=== PATIENT | female | born 1950 | race Caucasian/White ===

== ENCOUNTER → 2017-08-19 | Outpatient (CLI) | payer BC, OTHER ==
--- NOTE | 2017-08-20 08:26 | RADIOLOGY IMAGING REPORT ---
[place] [facility] [place]: JOSE MATTHEW : [id number] MR: [id number] V: [id number] EXAM DATE: ORDERING PHYSICIAN: INA LEUNG TECHNOLOGIST: Mary Gann PROCEDURE:BILATERAL DIGITAL SCREENING MAMMMOGRAM WITH CAD ASSISTED INTERPRETATION AND 3D BREAST TOMOSYNTHESIS. COMPARISON:Prior mammograms dated 08/06/16, 07/25/15, 07/06/14, 06/30/13 and 05/15/11. INDICATIONS:SCREENING FINDINGS: Small to moderate amount of fibroglandular tissue is seen throughout the breasts. The parenchymal pattern has remained stable when allowing for difference in mammographic technique and patient positioning. There is no evidence of malignant appearing mass, malignant appearing calcification or secondary sign of malignancy in either breast. DIAGNOSTIC CATEGORY 1--NEGATIVE. RECOMMENDATIONS: ROUTINE MAMMOGRAM AND CLINICAL EVALUATION. IMPRESSION: BI-RADS 1: No significant abnormality seen. Images were reviewed with R2CAD and 3D breast tomosynthesis. Dictated by: Karina Chi M.D. on 08/19/2017 at 16:43 Transcribed by: SAMREEN on 08/19/2017 at 18:49 Approved by: Karina Chi M.D. on 08/20/2017 at 8:25 [facility]
== END ==
LOC: MAMO 01:10
PROVIDERS: ATTEND Family Medicine
DX: Z12.31 Encounter for screening mammogram for malignant neoplasm of breast (principal)
CPT/HCPCS: 77063; 77067

== ENCOUNTER 2018-02-17 01:11 | Day surgery (SDC) | payer BC, MEDICARE ==
[~2018-02-17] VITALS: Ht 160 cm; Wt 47.6 kg
[~2018-02-17 01:11] MED LIST: CALC-864 PO; CHOL10005 PO; MELA10TA PO; NAPR1TAB10 PO; NAPR220C12 PO
[2018-02-17 06:39] VITALS: BP 117/78
[2018-02-17] MEDS ORDERED: PROPOFOL EMUL(*) 10MG/ML 20 ML 40 ML ONE (06:59)
[2018-02-17 08:10] VITALS: BP 125/70
[2018-02-17 08:43] VITALS: BP 118/75
[2018-02-17 08:45] VITALS: BP 127/82
[2018-02-17 08:46] VITALS: BP 102/86
[2018-02-17] MEDS ORDERED: NORMOSOL R SOLN(*) 1000 ML BAG 1,000 ML IV PRN (10:00)
[2018-02-17] MEDS ORDERED: LIDOCAINE/SOD BICARB 8.4% SYR ID ONE (10:00)
== END 2018-02-17 09:05 | disposition home or self-care (01) ==
LOC: OR 01:11
PROVIDERS: ATTEND Family Medicine
DX: Z12.11 Encounter for screening for malignant neoplasm of colon (principal)
CPT/HCPCS: 00812; 45378; J2704

== ENCOUNTER → 2018-08-25 | Outpatient (CLI) | payer BC, MEDICARE ==
--- NOTE | 2018-08-26 09:58 | RADIOLOGY IMAGING REPORT ---
FACILITY: [facility] PATIENT NAME: JOSE MATTHEW : [id number] MR: [id number] V: [id number] EXAM DATE: [id number] ORDERING PHYSICIAN: INA LEUNG TECHNOLOGIST: June Gaviria PROCEDURE:BILATERAL DIGITAL SCREENING MAMMOGRAM WITH CAD ASSISTED INTERPRETATION & 3D TOMOSYNTHESIS COMPARISON:Prior mammograms 08/19/17, 08/06/16, 07/25/15, 07/06/14, 07/30/13. INDICATIONS:SCREENING FINDINGS: Scattered fibroglandular densities are seen throughout the breasts. The parenchymal pattern has remained stable allowing for difference in mammographic technique & patient positioning. DIAGNOSTIC CATEGORY 1--NEGATIVE. RECOMMENDATIONS: ROUTINE MAMMOGRAM AND CLINICAL EVALUATION. IMPRESSION: BIRADS 1: Negative. No significant abnormality is seen. Dictated by: Karina Chi M.D. on 08/25/2018 at 16:58 Transcribed by: WALDO on 08/26/2018 at 9:04 Approved by: Karina Chi M.D. on 08/26/2018 at 9:58 [facility]
== END ==
LOC: MAMO 00:22
PROVIDERS: ATTEND Family Medicine
DX: Z12.31 Encounter for screening mammogram for malignant neoplasm of breast (principal)
CPT/HCPCS: 77063; 77067